=== PATIENT | female | born 2000 ===

== ENCOUNTER 2021-03-14 10:19 | Emergency (ER) | payer SELFPAY ==
--- NOTE | 2021-03-14 11:35 | Emergency Department Report ---
HPI - General Chief Complaint: Headache Time Seen by Provider: 03/14/21 10:53 - HPI HPI: This is a 20-year-old -[place] female presents to the emergency department with a complaint of a 2 to 3-month history of intermittent generalized headaches. The patient says that sometimes it feels like her ears are clogged and then they will suddenly pop, but she has some associated ear pains. Patient denies any vision change, slurred speech, facial droop, numbness or paresthesias, focal weakness. Currently she describes the headache as throbbing, 8 out of 10 in sensation, and feels like something is pulling at her scalp. She has not taken anything for symptoms prior to presentation today. She does not have a primary care physician. The patient initially was placed in the psychiatric portion of the emergency department as she admitted to a history of depression when she was asked triage questions. The patient also admits that she has a history of cutting herself in the past. However, at the time of my examination, the patient denies any current significant depression, suicidal ideations, any recent cutting or self- mutilation. She denies any auditory or visual hallucinations or any homicidal ideations. The patient does not appear to require a mental health evaluation at this time and she was moved to room #17. ED Past Medical Hx - Past Medical History Previous Medical History?: No - Surgical History Past Surgical History?: No - Social History Smoking Status: Never Smoker Substance Use Type: Marijuana ED Review of Systems ROS: Stated complaint: MIGRAINE Other details as noted in HPI Comment: All other systems reviewed and negative Constitutional: denies: chills, fever Eyes: denies: eye pain, vision change ENT: ear pain. denies: throat pain Respiratory: denies: cough, shortness of breath Cardiovascular: denies: chest pain, palpitations Gastrointestinal: denies: abdominal pain, vomiting Genitourinary: denies: dysuria, discharge Musculoskeletal: denies: back pain, arthralgia Skin: denies: rash, lesions Neurological: headache. denies: weakness, numbness, paresthesias Physical Exam - Physical Exam Vital Signs: Vital Signs 03/14/21 03/14/21 10:20 11:10 Temperature 98.9 F 98 F Pulse Rate 69 70 Respiratory 18 20 Rate Blood Pressure 118/88 Blood Pressure 143/69 [Right] O2 Sat by Pulse 100 Oximetry Physical Exam: GENERAL: The patient is well-developed well-nourished. HENT: Normocephalic. Atraumatic. Patient has moist mucous membranes. Normal appearing bilateral external ear canals and tympanic membranes. EYES: Extraocular motions are intact. Pupils equal reactive to light bilaterally. No nystagmus. NECK: Supple. Trachea is midline. No midline tenderness to palpation. There is some reproducible tenderness along the paraspinal muscles and down the trapezius muscle with some associated taut musculature. CHEST/LUNGS: Clear to auscultation. There is no respiratory distress noted. HEART/CARDIOVASCULAR: Regular. There is no tachycardia. There is no murmur. ABDOMEN: Abdomen is soft, nontender. Patient has normal bowel sounds. Morbidly obese habitus. SKIN: Skin is warm and dry. NEURO: The patient is awake, alert, and oriented. The patient is cooperative. The patient has no focal neurologic deficits. Normal speech. Cranial nerves II through XII grossly intact. No facial asymmetry. MUSCULOSKELETAL: There is no tenderness or deformity. There is no limitation range of motion. ED Course Vital Signs 03/14/21 03/14/21 10:20 11:10 Temperature 98.9 F 98 F Pulse Rate 69 70 Respiratory 18 20 Rate Blood Pressure 118/88 Blood Pressure 143/69 [Right] O2 Sat by Pulse 100 Oximetry ED Medical Decision Making - Radiology Data Radiology results: report reviewed CT head/brain wo con INDICATION / CLINICAL INFORMATION: 20 years Female; Headache. TECHNIQUE: Routine CT head without contrast. All CT scans at this location are performed using CT dose reduction for ALARA by means of automated exposure control. COMPARISON: None. FINDINGS: BRAIN / INTRACRANIAL CONTENTS: The brain parenchyma appears to demonstrate appropriate attenuation. The ventricular system is within normal limits in size and configuration. There is no CT evidence of acute intracranial hemorrhage or significant mass effect. ORBITS: No significant abnormality of visualized orbits. SINUSES / MASTOIDS: No significant abnormality in the visualized paranasal sinuses or mastoid air cells. CRANIOCERVICAL JUNCTION: No significant abnormality. ADDITIONAL FINDINGS: None. IMPRESSION: 1. There is no CT evidence of acute intrarenal process. - Medical Decision Making This patient presents to the emergency department with a complaint of intermittent generalized headaches that of been going on for the past 2 to 3 months. On examination the patient does not have any focal, motor or sensory deficits and her cranial nerves are intact. Since the patient has not had any evaluation and the headache has been going on for so long, we obtained a CT scan of the head without contrast. It did not show any mass, hemorrhage, large vessel occlusion, hydrocephalus, or any other acute process. The patient was offered a Fioricet but refused. Vital signs reassuring including being afebrile. No neck pain or meningismus signs. Patient was seen ambulatory in the emergency department and both appears and feels stable. She will be discharged home to follow-up with primary care and has been given a referral for a local neurologist. She will return to the emergency department with any worsening of her symptoms or with any acute distress. Critical Care Time: No Critical care attestation.: If time is entered above; I have spent that time in minutes in the direct care of this critically ill patient, excluding procedure time. ED Disposition Clinical Impression: Headache Qualifiers: Headache type: unspecified Headache chronicity pattern: unspecified pattern Intractability: not intractable Qualified Code(s): R51.9 - Headache, unspecified Disposition: DC- TO HOME OR SELFCARE Is pt being admited?: No Condition: Stable Instructions: General Headache Without Cause Additional Instructions: Please follow-up with a primary care physician in the next few days. I have given you a referral for a local primary care physician, Dr. Benson, and a primary care clinic, [facility]. I have given you a referral for a local neurologist, Dr. Foss, to follow-up regarding your history of intermittent and/or recurrent headaches. Try to avoid any alcohol or illicit drug use. Try to avoid any excessive caffeine use. Try to get 8 hours of uninterrupted sleep at night. Return to the emergency department with any worsening of your symptoms, new or concerning symptoms not addressed during this current emergency department visit, or with any acute distress. Referrals: SIMIN BENSON MD [Staff Physician] - 3-5 Days ADDY FOSS MD [Referring] - 3-5 Days [facility] [Provider Group] - 3-5 Days Forms: Work/School Release Form(ED) Time of Disposition: 12:45
--- NOTE | 2021-03-14 12:29 | Cat Scan Report ---
CT head/brain wo con INDICATION / CLINICAL INFORMATION: 20 years Female; Headache. TECHNIQUE: Routine CT head without contrast. All CT scans at this location are performed using CT dos e reduction for ALARA by means of automated exposure control. COMPARISON: None. FINDINGS: BRAIN / INTRACRANIAL CONTENTS: The brain parenchyma appears to demonstrate appropriate attenuation. T he ventricular system is within normal limits in size and configuration. There is no CT evidence of a cute intracranial hemorrhage or significant mass effect. ORBITS: No significant abnormality of visualized orbits. SINUSES / MASTOIDS: No significant abnormality in the visualized paranasal sinuses or mastoid air gabriella ls. CRANIOCERVICAL JUNCTION: No significant abnormality. ADDITIONAL FINDINGS: None. IMPRESSION: 1. There is no CT evidence of acute intrarenal process. Signer Name: Chapito Aguilera MD Signed: 03/14/2021 12:24 PM Workstation Name: [id number]
[2021-03-14] MEDS: BUTALB/ACETAMINOPHEN/CAFFEINE TAB PO ONE ×2 (12:33→12:36)
[2021-03-14 14:18] VITALS: BP 142/68
== END 2021-03-14 13:00 | disposition home or self-care (01) ==
LOC: ED 10:19
DX: R51.9 Headache, unspecified (principal); H92.03 Otalgia, bilateral; F12.10 Cannabis abuse, uncomplicated
CPT/HCPCS: 70450